=== PATIENT | female | born 1980 | race Caucasian/White ===

== ENCOUNTER 2018-07-13 16:43 | Emergency (ER) | payer BC ==
[2018-07-13] MEDS ORDERED: ASPIRIN 81 MG TABLET, CHEWABLE PO ONE (17:58)
--- NOTE | 2018-07-13 18:00 | ER Document Report ---
ED Medical Screen (RME) - General Chief Complaint: High Blood Pressure Stated Complaint: BLOOD PRESSURE ISSUE Time Seen by Provider: 07/13/18 17:58 Mode of Arrival: Ambulatory Information source: Patient Notes: Patient is an otherwise healthy 38-year-old female who presents with chief complaint of chest pressure and elevated blood pressure. Patient reports that over the last couple of weeks she has been dealing with elevated blood pressure , has not had a formal diagnosis made. Patient states that she has also been having intermittent chest pressure, nonradiating and nonreproducible over the last 2 weeks as well. Patient reports associated numbness and tingling in her hands and mild shortness of breath. Patient denies any cardiac history. Exam: Chest wall nontender to palpation. Patient alert, oriented and in no acute distress. I have greeted and performed a rapid initial assessment of this patient. A comprehensive ED assessment and evaluation of the patient, analysis of test results and completion of the medical decision making process will be conducted by additional ED providers. Dictation of this chart was performed using voice recognition software; therefore, there may be some unintended grammatical errors. TRAVEL OUTSIDE OF THE [place] IN LAST 30 DAYS: No - Related Data Allergies/Adverse Reactions: No Known Allergies Allergy (Verified 07/13/18 17:52) Physical Exam - Vital signs Vitals: Temp Pulse Resp BP Pulse Ox 98.8 F 95 16 158/100 H 100 07/13/18 16:57 07/13/18 16:57 07/13/18 16:57 07/13/18 16:57 07/13/18 16:57 Course - Vital Signs Vital signs: Temp Pulse Resp BP Pulse Ox 98.8 F 95 16 158/100 H 100 07/13/18 16:57 07/13/18 16:57 07/13/18 16:57 07/13/18 16:57 07/13/18 16:57 Doctor's Discharge - Discharge Referrals: TIA PORTER MD [Primary Care Provider] - Follow up as needed
--- NOTE | 2018-07-13 18:41 | RADIOLOGY REPORT (SQ) ---
EXAM DESCRIPTION: CHEST SINGLE VIEW COMPLETED DATE/TIME: 07/13/2018 6:33 pm REASON FOR STUDY: chest pressure COMPARISON: None. EXAM PARAMETERS: NUMBER OF VIEWS: One view. TECHNIQUE: Single frontal radiographic view of the chest acquired. RADIATION DOSE: NA LIMITATIONS: None. FINDINGS: LUNGS AND PLEURA: No opacities, masses or pneumothorax. No pleural effusion. MEDIASTINUM AND HILAR STRUCTURES: No masses. Contour normal. HEART AND VASCULAR STRUCTURES: Heart normal in size. Normal vasculature. BONES: No acute findings. HARDWARE: None in the chest. OTHER: No other significant finding. IMPRESSION: NO ACUTE RADIOGRAPHIC FINDING IN THE CHEST. TECHNICAL DOCUMENTATION: JOB ID: [id number] [employer]- All Rights Reserved Reading location - IP/workstation name: [email or web address]
--- NOTE | 2018-07-13 19:52 | EKG REPORT ---
SEVERITY:- ABNORMAL ECG - SINUS RHYTHM LEFT ATRIAL ABNORMALITY NONSPECIFIC ST-T CHANGES : Confirmed by: Moe Gonzalez MD 13-Jul-2018 19:52:11
[2018-07-13 20:09] LABS: ABSOLUTE LYMPHOCYTES (AUTO) 3.1 10^3/uL (0.5-4.7); ABSOLUTE MONOCYTES (AUTO) 0.8 10^3/uL (0.1-1.4); ABSOLUTE NEUT (AUTO) 7.1 10^3/uL (1.7-8.2); BASOPHILS % (AUTO) 0.3 % (0-2); EOSINOPHILS % (AUTO) 0.3 % (0-6); HEMOGLOBIN 14.2 g/dL (12.0-15.5); LYMPHOCYTES % (AUTO) 28.1 % (13-45); MEAN CORPUSCULAR HEMOGLOBIN 31.4 pg (27.0-33.4); MEAN CORPUSCULAR HGB CONC 33.9 g/dL (32.0-36.0); MEAN CORPUSCULAR VOLUME 93 fl (80-97); MONOCYTES % (AUTO) 6.9 % (3-13); PLATELET COUNT 329 10^3/uL (150-450); RED BLOOD COUNT 4.52 10^6/uL (3.72-5.28); RED CELL DISTRIBUTION WIDTH 13.5 % (11.5-14.0); SEGMENTED NEUTROPHILS % (AUTO) 64.4 % (42-78); TOTAL CELLS COUNTED % (AUTO) 100 %; WHITE BLOOD COUNT 11.1 10^3/uL (4.0-10.5)
[2018-07-13 20:30] LABS: ALANINE AMINOTRANSFERASE 35 U/L (9-52); ALBUMIN 5.1 g/dL (3.5-5.0); ALKALINE PHOSPHATASE 85 U/L (38-126); ANION GAP 15 (5-19); ASPARTATE AMINO TRANSFERASE 32 U/L (14-36); BILIRUBIN,DIRECT 0.3 mg/dL (0.0-0.4); BILIRUBIN,TOTAL 0.8 mg/dL (0.2-1.3); BLOOD UREA NITROGEN 12 mg/dL (7-20); CALCIUM 10.2 mg/dL (8.4-10.2); CARBON DIOXIDE 24 mmol/L (22-30); CHLORIDE 102 mmol/L (98-107); CREATINE KINASE 159 U/L (30-135); GLUCOSE 91 mg/dL (75-110); POTASSIUM 4.4 mmol/L (3.6-5.0); SODIUM 140.8 mmol/L (137-145)
[2018-07-13 20:44] LABS: CREATINE KINASE MB 2.36 ng/mL (<4.55)
[2018-07-13 20:48] LABS: TROPONIN I 0.833 ng/mL
[2018-07-13] MEDS ORDERED: HEPARIN SODIUM,PORCINE/D5W 25,000 UNIT/250 ML RTUINJ IV PRN (21:07)
[2018-07-13] MEDS ORDERED: HEPARIN SOD (PORCINE) 1,000 UNIT/ML 10 ML VIAL IV ONE (21:07)
[2018-07-13] MEDS ORDERED: NITROGLYCERIN/D5W 50 MG/250 ML RTUINJ IV PRN (21:08)
[2018-07-13] MEDS ORDERED: METOPROLOL TARTRATE PF/INJ 5 MG/5 ML SDV IV ONE (21:09)
[2018-07-13] MEDS ORDERED: CLOPIDOGREL BISULFATE 300 MG TABLET PO ONE (21:09)
--- NOTE | 2018-07-13 21:09 | ER Document Report ---
ED General - General Chief Complaint: High Blood Pressure Stated Complaint: BLOOD PRESSURE ISSUE Time Seen by Provider: 07/13/18 17:58 Mode of Arrival: Ambulatory Notes: 38-year-old female to the emergency department for evaluation of chest tightness. Patient just recently found that she has hypertension. Was referred to a residence manager who then referred her to the ER today for high blood pressure and chest tightness. Has any other major symptoms at this time. No nausea vomiting. No arm pain. No syncope. Patient denies any history of medical problems other than a recent MRSA infection TRAVEL OUTSIDE OF THE [place] IN LAST 30 DAYS: No - HPI Onset: Last week Onset/Duration: Gradual, Constant Quality of pain: Dull Severity: Moderate Pain Level: 3 Associated symptoms: None - Related Data Allergies/Adverse Reactions: No Known Allergies Allergy (Verified 07/13/18 17:52) Past Medical History - General Information source: Patient - Social History Smoking Status: Former Smoker Chew tobacco use (# tins/day): No Frequency of alcohol use: Social Drug Abuse: None Lives with: Spouse/Significant other Family History: Other - Family history significant for coronary artery disease, [place] on both sides of the family mother and father both with significant cardiac disease Patient has suicidal ideation: No Patient has homicidal ideation: No - Past Medical History Cardiac Medical History: Reports: Hx Hypertension Renal/ Medical History: Denies: Hx Peritoneal Dialysis Review of Systems - Review of Systems Notes: Constitutional: denies: Chills, Diaphoresis, Fever, Malaise, Weakness EENT: denies: Eye discharge, Blurred vision, Tearing, Double vision, Nose congestion, Nose discharge, Throat swelling, Mouth pain Cardiovascular: Chest pressure, heaviness on the chest, hypertension Respiratory: denies: Cough, Hurts to breathe, Wheezing, Shortness of breath Gastrointestinal: denies: Abdominal pain, Diarrhea, Nausea, Vomiting, Black stools, bright red blood in stool Genitourinary: denies: Burning, Dysuria, Discharge, Frequency, Flank pain, Hematuria Musculoskeletal: denies: Joint pain, Joint swelling, Muscle pain, Muscle stiffness, back pain Hematologic/Lymphatic: denies: Anemia, Easy bleeding, Easy bruising, Blood clots Neurological/Psychological: denies: Confusion, Dementia, Depression, Loss of consciousness Skin: No lesions, no masses, no skin breakdown, no abscesses Physical Exam - Vital signs Vitals: Temp Pulse Resp BP Pulse Ox 98.8 F 95 16 158/100 H 100 07/13/18 16:57 07/13/18 16:57 07/13/18 16:57 07/13/18 16:57 07/13/18 16:57 Interpretation: Tachycardic - General General appearance: Appears well, Alert - HEENT Head: Normocephalic, Atraumatic Eyes: Normal Pupils: PERRL - Respiratory Respiratory status: No respiratory distress Chest status: Nontender Breath sounds: Normal Chest palpation: Normal - Cardiovascular Rhythm: Tachycardia Heart sounds: Normal auscultation Murmur: No - Abdominal Inspection: Normal Distension: No distension Bowel sounds: Normal Tenderness: Nontender Organomegaly: No organomegaly - Back Back: Normal, Nontender - Extremities General upper extremity: Normal inspection, Nontender, Normal color, Normal ROM , Normal temperature General lower extremity: Normal inspection, Nontender, Normal color, Normal ROM , Normal temperature, Normal weight bearing. No: Pia's sign - Neurological Neuro grossly intact: Yes Cognition: Normal Orientation: AAOx4 Howie Coma Scale Eye Opening: Spontaneous Howie Coma Scale Verbal: Oriented H[place]we Coma Scale Motor: Obeys Commands Howie Coma Scale Total: 15 Speech: Normal Motor strength normal: LUE, RUE, LLE, RLE Sensory: Normal - Psychological Associated symptoms: Normal affect, Normal mood - Skin Skin Temperature: Warm Skin Moisture: Dry Skin Color: Normal Course - Re-evaluation Re-evalutation: 07/13/18 21:19 Patient with severe hypertension and tachycardia with elevated cardiac troponin. Patient needs immediate intervention by cardiology. I am starting patient on Lopressor, nitroglycerin drip, heparin drip, aspirin and Lipitor. I have consulted with Dr. Henderson at [facility] in [facility]. He has accepted patient for immediate transfer. 07/13/18 21:21 Laboratory 07/13/18 07/13/18 07/13/18 19:49 19:49 19:49 WBC 11.1 H RBC 4.52 Hgb 14.2 Hct 42.0 MCV 93 MCH 31.4 MCHC 33.9 RDW 13.5 Plt Count 329 Seg Neutrophils % 64.4 Lymphocytes % 28.1 Monocytes % 6.9 Eosinophils % 0.3 Basophils % 0.3 Absolute Neutrophils 7.1 Absolute Lymphocytes 3.1 Absolute Monocytes 0.8 Absolute Eosinophils 0.0 Absolute Basophils 0.0 Sodium 140.8 Potassium 4.4 Chloride 102 Carbon Dioxide 24 Anion Gap 15 BUN 12 Creatinine 0.68 Est GFR ( Amer) > 60 Est GFR (Non-Af Amer) > 60 Glucose 91 Calcium 10.2 Total Bilirubin 0.8 Direct Bilirubin 0.3 Neonat Total Bilirubin Not Reportable Neonat Direct Bilirubin Not Reportable Neonat Indirect Bili Not Reportable AST 32 ALT 35 Alkaline Phosphatase 85 Creatine Kinase 159 H CK-MB (CK-2) 2.36 Troponin I 0.833 Total Protein 9.0 H Albumin 5.1 H Chest X-Ray 07/13/18 17:58 IMPRESSION: NO ACUTE RADIOGRAPHIC FINDING IN THE CHEST. 07/13/18 23:00 Second troponin slightly higher than the first. Blood pressure is coming down nicely. Did not continue with the nitroglycerin drip blood pressure came down nicely with Lopressor. Patient is asymptomatic at this time. 07/13/18 23:00 She has been reevaluated. Remained stable for transport at this time. 07/13/18 23:51 Patient still remained stable for transfer. Blood pressures in acceptable range. A symptomatic and without pain at this time. - Vital Signs Vital signs: Temp Pulse Resp BP Pulse Ox 98.0 F 95 20 135/98 H 99 07/13/18 23:40 07/13/18 16:57 07/13/18 23:40 07/13/18 23:40 07/13/18 23:40 - Laboratory Result Diagrams: 07/13/18 19:49 07/13/18 19:49 Laboratory results interpreted by me: 07/13/18 07/13/18 19:49 19:49 WBC 11.1 H Creatine Kinase 159 H Total Protein 9.0 H Albumin 5.1 H - EKG Interpretation by [place] EKG shows normal: Sinus rhythm, Wagg[place], Intervals, QRS Complexes. abnormal: ST-T Waves - ST elevation 1 mm in v2 Critical Care Note - Critical Care Note Total time excluding time spent on procedures (mins): 60 Comments: Elevated cardiac troponin, non-ST segment elevation IL, malignant hypertension him a hypertensive emergency, coordination of transfer of care, active blood pressure management. Consultation with specialists Discharge - Discharge Clinical Impression: Hypertensive emergency, Non-ST elevation IL (NSTEMI) Condition: Good Disposition: Critical access hospital Referrals: TIA PORTER MD [ACTIVE STAFF] - Follow up as needed
[2018-07-13] MEDS ORDERED: ATORVASTATIN CALCIUM 80 MG TABLET PO ONE (21:17)
[2018-07-13 21:28] LABS: INTERNATIONAL RATION (INR) 0.86; PARTIAL THROMBOPLASTIN TIME 26.8 SEC (23.5-35.8); PROTHROMBIN TIME 12.2 SEC (11.4-15.4)
[2018-07-13 23:45] VITALS: BP 135/98
[2018-07-14] MEDS ORDERED: HEPARIN SOD (PORCINE) 1,000 UNIT/ML 10 ML VIAL IV PRN (00:08)
--- NOTE | 2018-07-14 07:48 | EKG REPORT ---
SEVERITY:- ABNORMAL ECG - SINUS RHYTHM PROBABLE LEFT ATRIAL ABNORMALITY ABNORMAL T, CONSIDER ISCHEMIA, ANT-LAT LEADS : Confirmed by: Moe Gonzalez MD 14-Jul-2018 07:48:07
== END 2018-07-13 23:50 | disposition short-term general hospital (02) ==
LOC: ER 16:43
DX: I16.1 Hypertensive emergency (principal); I10 Essential (primary) hypertension; I21.4 Non-ST elevation (NSTEMI) myocardial infarction; R07.89 Other chest pain; R00.0 Tachycardia, unspecified; Z86.14 Personal history of Methicillin resistant Staphylococcus aureus infection; Z87.891 Personal history of nicotine dependence; Z82.49 Family history of ischemic heart disease and other diseases of the circulatory system
CPT/HCPCS: 93005; 99291; 96375; 96365; 96366; 36415; 82553; 82550; 84703; 85025; 85610; 85730; 80053; 84484; 71045; 93010; J1644 ×2; J3490